=== PATIENT | female | born 1975 | race Caucasian/White ===

== ENCOUNTER 2024-02-07 00:06 | Inpatient (IN) | payer OTHER ==
[2024-02-07 01:21] VITALS: BMI 46.2
[2024-02-07] MEDS ORDERED: DICYCLOMINE HCL 10 MG CAPSULE PO PRN (04:02)
[2024-02-07] MEDS ORDERED: ONDANSETRON *ODT* 4 MG TABLET SL PRN (04:02)
[2024-02-07] MEDS ORDERED: BISMUTH SUBSALICYLATE 524 MG/30 ML PO PRN (04:02)
[2024-02-07] MEDS ORDERED: MAG HYDROX/AL HYDROX/SIMETH 30 ML UNIT-DOSE CUP PO PRN (04:02)
[2024-02-07] MEDS ORDERED: NALOXONE (NARCAN) HCL 4 MG/0.1 ML SPRAY NS PRN (04:02)
[2024-02-07] MEDS ORDERED: guaiFENesin 600 MG TABLET.ER (FP) PO PRN (04:02)
[2024-02-07] MEDS ORDERED: BENZONATATE 200 MG CAPSULE PO PRN (04:02)
[2024-02-07] MEDS ORDERED: BENZOCAINE/MENTHOL (CHLORASEPTIC ) LOZENGE MM PRN (04:02)
[2024-02-07] MEDS ORDERED: METHOCARBAMOL 500 MG TABLET PO PRN (04:02)
[2024-02-07] MEDS ORDERED: MAGNESIUM HYDROX 2400MG/30ML ORAL SUSPENSION 30 ML CUP PO PRN (04:02)
[2024-02-07] MEDS ORDERED: NALOXONE HCL 0.4 MG/ML VIAL IM PRN (04:02)
[2024-02-07] MEDS ORDERED: POLYETHYLENE GLYCOL (HEALTHYLAX) 3350 17 GM PACKET PO PRN (04:02)
[2024-02-07] MEDS ORDERED: cloNIDine HCL 0.1 MG TABLET ONE (04:37)
[2024-02-07] MEDS ORDERED: hydrOXYzine PAMOATE 25 MG CAPSULE (FP) PO ONE (04:37)
[2024-02-07] MEDS: cloNIDine HCL 0.1 MG TABLET PO ONE (04:39)
[2024-02-07] MEDS: hydrOXYzine PAMOATE 25 MG CAPSULE (FP) PO PRN (04:39)
[2024-02-07] MEDS ORDERED: methaDONE HCL 10 MG TABLET PO ONE (08:15)
[2024-02-07] MEDS ORDERED: diazePAM 5 MG TABLET PO PRN (09:52)
[2024-02-07] MEDS ORDERED: PATIENT'S OWN MEDICATION (NON-FORMULARY) (Levonorgestrel-Ethin Estradiol [Vienva-28 Tablet PO SCH (10:00)
[2024-02-07] MEDS: HYDROCHLOROTHIAZIDE 12.5 MG CAPSULE (FP) PO SCH (10:23)
[2024-02-07] MEDS: PANTOPRAZOLE 40 MG TABLET PO SCH (10:23)
[2024-02-07] MEDS: amLODIPine BESYLATE 5 MG TABLET (FP) PO SCH (10:23)
[2024-02-07] MEDS: LISINOPRIL 20 MG TABLET PO SCH (10:23)
[2024-02-07] MEDS: PRENATAL VITAMINS W/ FOLIC ACID TABLET (FP) PO SCH (10:24)
[2024-02-07] MEDS: DISULFIRAM 250 MG TABLET PO SCH (10:56)
[2024-02-07] MEDS: diazePAM 5 MG TABLET PO SCH (10:57)
[2024-02-07] MEDS: GABAPENTIN 100 MG CAPSULE PO SCH ×2 (11:00→13:41)
[2024-02-07] MEDS: SERTRALINE HCL 50 MG TABLET (FP) PO SCH (11:31)
[2024-02-07] MEDS: LOPERAMIDE HCL 2 MG CAPSULE PO PRN (11:53)
[2024-02-07] MEDS: ACAMPROSATE CALCIUM 333 MG TABLET.DR PO SCH (13:41)
[2024-02-07] MEDS ORDERED: MELATONIN 5 MG TABLETS PO SCH (22:00)
[2024-02-07] MEDS: THIAMINE 100 MG TABLET PO SCH (22:31)
[2024-02-07] MEDS: SUVOREXANT 10 MG TABLET PO PRN (22:32)
[2024-02-08] MEDS ORDERED: methaDONE HCL 40 MG DISPERSABLE TABLET PO SCH (06:00)
[2024-02-08] MEDS ORDERED: PATIENT'S OWN MEDICATION (NON-FORMULARY) (Levonorgestrel-Ethin Estradiol [Vienva-28 Tablet PO SCH (07:00)
[2024-02-08 10:25] LABS: HEMATOCRIT 33.8 % (32.4-45.2); HEMOGLOBIN 11.4 GM/dL (10.7-15.3); MCH 33.6 pg (25.7-33.7); MCHC 33.8 g/dl (32.0-36.0); MEAN CELL VOLUME 99.2 fl (80-96); PLATELET COUNT 339 10^3/uL (134-434); RBC 3.41 M/mm3 (3.60-5.2); RDW 18.1 % (11.6-15.6); WHITE BLOOD COUNT 4.3 K/mm3 (4.0-10.0)
[2024-02-08 10:47] LABS: POTASSIUM 4.1 mmol/L (3.5-5.1)
[2024-02-08 11:05] LABS: CALCIUM 8.7 mg/dL (8.5-10.1)
[2024-02-08 11:06] LABS: ALBUMIN 3.1 g/dl (3.4-5.0); BLOOD UREA NITROGEN 14.4 mg/dL (7-18)
[2024-02-08 11:09] LABS: CREATININE 0.8 mg/dL (0.55-1.3)
[2024-02-08 11:11] LABS: TOT PROT 6.3 g/dl (6.4-8.2)
[2024-02-08 11:12] LABS: BILIRUBIN,TOTAL 0.6 mg/dL (0.2-1)
[2024-02-09] MEDS: IBUPROFEN 600 MG TABLET (FP) PO PRN (02:41)
[2024-02-09] MEDS: diazePAM 5 MG TABLET PO SCH (06:07)
[2024-02-09] MEDS: ACETAMINOPHEN 325 MG TABLET (FP) PO PRN (17:20)
[2024-02-10] MEDS: diazePAM 5 MG TABLET PO SCH (05:47)
[2024-02-10] MEDS ORDERED: chlordiazePOXIDE HCL 10 MG CAPSULE PO PRN (09:51)
[2024-02-10] MEDS ORDERED: chlordiazePOXIDE HCL 10 MG CAPSULE PO ONE (18:00)
[2024-02-10] MEDS: IBUPROFEN 400 MG TABLET (FP) PO PRN (20:13)
[2024-02-10] MEDS: chlordiazePOXIDE HCL 10 MG CAPSULE PO ONE (20:13)
[2024-02-10] MEDS: SUVOREXANT 10 MG TABLET PO PRN (22:25)
[2024-02-11] MEDS: chlordiazePOXIDE HCL 10 MG CAPSULE PO ONE (05:47)
[2024-02-11] MEDS ORDERED: diazePAM 5 MG TABLET PO ONE (06:00)
[2024-02-11 06:48] VITALS: BP 150/70; PULSE 65; RESP 16; TEMP 95.9
== END 2024-02-11 09:42 | disposition home or self-care (01) | DRG 773 ==
LOC: YASAS 00:06 → Y3N 02:36 → UNDOADMIN 02:36 → Y6N 04:39
PROVIDERS: ADMIT Allergy & Immunology; ATTEND Surgery
PROC: HZ2ZZZZ Detoxification Services for Substance Abuse Treatment (ICD-10-PCS; principal; 2024-02-07)
DX: F11.20 Opioid dependence, uncomplicated (principal); F10.230 Alcohol dependence with withdrawal, uncomplicated; F10.282 Alcohol dependence with alcohol-induced sleep disorder; F32.A Depression, unspecified; F41.9 Anxiety disorder, unspecified; I10 Essential (primary) hypertension; Z98.84 Bariatric surgery status; Z56.0 Unemployment, unspecified
CPT/HCPCS: 36415; 80053; 80305; 80307; 81025; 85027; 86780; 93005; 93010